=== PATIENT | female | born 2000 ===

== ENCOUNTER 2022-05-30 16:00 | Outpatient (CLI) | payer MEDICAID ==
[2022-05-31 23:30] LABS: CHLAMYDIA TRACHOMATIS DNA NEGATIVE (NEGATIVE); NEISSERIA GONORRHOEAE DNA NEGATIVE (NEGATIVE); TRICHOMONAS VAGINALIS DNA NEGATIVE (NEGATIVE)
== END 2022-05-30 23:59 | disposition home or self-care (01) ==
LOC: LAB.R 16:00
PROVIDERS: ATTEND Obstetrics & Gynecology
DX: Z11.3 Encounter for screening for infections with a predominantly sexual mode of transmission (principal)
CPT/HCPCS: 87491; 87591; 87661